=== PATIENT | female | born 1975 | race Caucasian/White ===

== ENCOUNTER 2016-07-18 20:38 | Emergency (ER) | payer OTHER ==
[2016-03-04 16:22] VITALS: BP 113/57
[~2016-07-18 20:38] MED LIST: METR500T PO; PREN1TAB58 PO
== END 2016-07-18 21:45 | disposition left against medical advice (07) ==
LOC: ER 20:38
DX: M79.662 Pain in left lower leg (principal); M79.89 Other specified soft tissue disorders; R25.2 Cramp and spasm; Z53.21 Procedure and treatment not carried out due to patient leaving prior to being seen by health care provider

== ENCOUNTER 2018-07-04 22:53 | Observation (INO) | payer SELFPAY ==
[2016-08-13 15:30] VITALS: BP 129/61
[~2018-07-04 22:53] MED LIST changes: +DOCU-109 PO; +IBUP-1060 PO; +OXYC1TAB15 PO
[2018-07-04 23:25] LABS: BILIRUBIN,URINE NEGATIVE (NEG); CLARITY,URINE CLEAR; COLOR,URINE YELLOW; NITRITE,URINE NEGATIVE (NEG); PROTEIN,URINE 30 mg/dL (NEG-TRACE); UROBILINOGEN,URINE 0.2 mg/dL (0.2 mg/dL)
[2018-07-04] MEDS ORDERED: IV RINGERS,LACTATED 1000ML 1,000 ML IV SCH (23:30)
[2018-07-04 23:31] LABS: BARBITURATES NEG (NEG); BENZODIAZEPINES NEG (NEG); CANNABINOIDS NEG (NEG); COCAINE NEG (NEG); METHADONE NEG (NEG); OPIATES NEG (NEG); PHENCYCLIDINE NEG (NEG)
[2018-07-04 23:34] LABS: BACTERIA,URINE FEW /HPF (0-FEW); RBC,URINE OCC /HPF (0-2)
[2018-07-04 23:35] LABS: SQUAMOUS EPITHELIAL CELL,UR MOD /LPF; YEAST,URINE PRESENT /HPF
[2018-07-04 23:54] LABS: AMPHETAMINE/METHAMPHETAMINE POS (NEG)
[2018-07-05] MEDS ORDERED: AMOX875T PO (00:16)
[2018-07-05] MEDS ORDERED: HYDR-3164 PO (00:16)
== END 2018-07-04 23:45 | disposition home or self-care (01) ==
LOC: 3 SO LND 22:53
PROVIDERS: ADMIT Obstetrics & Gynecology; ATTEND Obstetrics & Gynecology
DX: O36.8130 Decreased fetal movements, third trimester, not applicable or unspecified (principal); O26.893 Other specified pregnancy related conditions, third trimester; K08.89 Other specified disorders of teeth and supporting structures; Z3A.31 31 weeks gestation of pregnancy
CPT/HCPCS: 80307; 81001; G0379

== ENCOUNTER 2018-07-04 23:55 | Emergency (ER) | payer SELFPAY ==
[2016-08-13 15:30] VITALS: BP 129/61
[~2018-07-04] VITALS: Ht 157.5 cm; Wt 69.4 kg
[2018-07-05] MEDS ORDERED: AMOX875T PO (00:16)
[2018-07-05] MEDS ORDERED: HYDR-3164 PO (00:16)
--- NOTE | 2018-07-05 00:16 | PHYS DOC ---
Past Medical History Past Medical History: No Pertinent History Past Surgical History: Other Additional Past Surgical Histo: JAW RECONSTRUCTION Alcohol Use: None Drug Use: None Adult General Chief Complaint Chief Complaint: DENTAL PROBLEM HPI HPI Patient is a 43 year old female in no significant medical history currently 27 weeks 9 para 8 presenting today with moderate left upper gum dental pain that began today. Patient denies any fever or trismus. She states she has plans to see her dentist tomorrow if she can get an appointment. She has known history of dental caries. She was evaluated on the OB floor. Review of Systems Review of Systems Constitutional: Denies fever or chills [] HENT: Reports dental pain GI: Denies abdominal pain, nausea, vomiting, bloody stools or diarrhea [] Musculoskeletal: Denies back pain or joint pain [] Integument: Denies rash or skin lesions [] Neurologic: Denies headache, focal weakness or sensory changes [] All other systems were reviewed and found to be within normal limits, except as documented in this note. Allergies Allergies Allergies Coded Allergies Type Severity Reaction Last Updated Verified No Known Drug Allergies 03/04/16 No Physical Exam Physical Exam Constitutional: Well developed, well nourished, no acute distress, non-toxic appearance. [] HENT: Normocephalic, atraumatic, bilateral external ears normal, oropharynx moist, no oral exudates, nose normal. [] Left upper molars with multiple teeth with infected dental caries. Dental caries scattered throughout the remainder of her teeth. No gum erythema. No abscess. Abdomen: Gravid abdomen. Bowel sounds normal, soft, no tenderness, no masses, no pulsatile masses. [] Skin: Warm, dry, no erythema, no rash. [] Back: No tenderness, no CVA tenderness. [] Extremities: No tenderness, no cyanosis, no clubbing, ROM intact, no edema. [] Neurologic: Alert and oriented X 3, normal motor function, normal sensory function, no focal deficits noted. [] Psychologic: Affect normal, judgement normal, mood normal. [] EKG EKG [] Radiology/Procedures Radiology/Procedures [] Course & Med Decision Making Course & Med Decision Making Pertinent Labs and Imaging studies reviewed. (See chart for details) This is a 43-year-old. Patient 9 para 8 currently 27 weeks presenting to the ED today with dental pain. Patient has infected dental caries. Was already evaluated on the OB floor. Will be discharged with amoxicillin and hydrocodone. She has an established care with a dentist. Requested her to follow-up in the next 7 days. Reuben Disclaimer Reuben Disclaimer This electronic medical record was generated, in whole or in part, using a voice recognition dictation system. Departure Departure Impression: Primary Impression: Dentalgia Additional Impression: Infected dental caries Disposition: HOME, SELF-CARE Condition: STABLE Referrals: KIRA HUMPHREYS Jr, MD (PCP) Follow-up with your dentist as soon as you can Patient Instructions: Dental Caries Additional Instructions: You were evaluated in the emergency room for infected dental caries. Complete your antibiotics. Take the prescribed pain medicine as needed for pain. Follow- up with the dentist as soon as you can. Scripts Amoxicillin (AMOXICILLIN) 875 Mg Tablet 1 TAB PO BID, #20 TAB Prov: SARINA DOWNING APRN 07/05/18 Hydrocodone/Apap 5-325 (NORCO 5-325 TABLET) 1 Each Tablet 1 TAB PO Q6HRS, #12 TAB Prov: SARINA DOWNING APPLICATION SUPPORT ANALYST 07/05/18 Problem Qualifiers SARINA DOWNING APRN Jul 05, 2018 00:16
[2018-07-05] MEDS ORDERED: AMOXICILLIN 250 MG CAPSULE. PO ONE (00:30)
[2018-07-05] MEDS ORDERED: HYDROcodone/APAP 5/325MG 1 TAB TABLET PO ONE (00:30)
== END 2018-07-05 00:31 | disposition home or self-care (01) ==
LOC: ER 23:55
DX: O99.613 Diseases of the digestive system complicating pregnancy, third trimester (principal); K02.9 Dental caries, unspecified; Z3A.27 27 weeks gestation of pregnancy
CPT/HCPCS: 99283

== ENCOUNTER 2018-08-07 22:14 | Observation (INO) | payer MEDICAID ==
[2018-07-04 23:59] VITALS: BP 132/61
[~2018-08-07 22:14] MED LIST changes: +AMOX875T PO; +HYDR-3164 PO
[2018-08-07] MEDS ORDERED: IV RINGERS,LACTATED 1000ML 1,000 ML IV PRN (22:30)
[2018-08-07 22:40] LABS: BILIRUBIN,URINE NEGATIVE (NEG); CLARITY,URINE CLEAR; COLOR,URINE YELLOW; NITRITE,URINE NEGATIVE (NEG); PROTEIN,URINE NEGATIVE (NEG-TRACE); UROBILINOGEN,URINE 0.2 mg/dL (0.2 mg/dL)
[2018-08-07 22:46] LABS: BACTERIA,URINE FEW /HPF (0-FEW); RBC,URINE 0 /HPF (0-2); SQUAMOUS EPITHELIAL CELL,UR MANY /LPF; WBC,URINE TNTC /HPF (0-4)
[2018-08-07 22:47] LABS: BARBITURATES NEG (NEG); BENZODIAZEPINES POS (NEG); CANNABINOIDS NEG (NEG); COCAINE NEG (NEG); METHADONE NEG (NEG); OPIATES NEG (NEG); PHENCYCLIDINE NEG (NEG)
[2018-08-07 22:48] LABS: AMPHETAMINE/METHAMPHETAMINE POS (NEG)
[2018-08-07] MEDS ORDERED: hydrOXYzine IM 50 MG/ML VIAL IM ONE (23:15)
[2018-08-07 23:35] LABS: BASO # 0.1 x10^3/uL (0.0-0.2); BASO % 1 % (0-3); EOS % 0 % (0-3); HEMATOCRIT 34.3 % (36.0-47.0); HEMOGLOBIN 11.3 g/dL (12.0-15.5); LYMPH # 2.1 x10^3/uL (1.0-4.8); LYMPH % 17 % (24-48); MEAN CORPUSCULAR HEMOGLOBIN 29 pg (25-35); MEAN CORPUSCULAR HGB CONC 33 g/dL (31-37); MEAN CORPUSCULAR VOLUME 88 fL (79-100); MONO # 0.5 x10^3/uL (0.0-1.1); MONO % 4 % (0-9); NEUT # 9.6 x10^3uL (1.8-7.7); NEUT % 78 % (31-73); PLATELET COUNT 377 x10^3/uL (140-400); RED BLOOD COUNT 3.88 x10^6/uL (3.50-5.40); RED CELL DISTRIBUTION WIDTH 14.5 % (11.5-14.5); WHITE BLOOD COUNT 12.4 x10^3/uL (4.0-11.0)
== END 2018-08-08 00:05 | disposition home or self-care (01) ==
LOC: 3 SO LND 22:14
PROVIDERS: ADMIT Obstetrics & Gynecology; ATTEND Obstetrics & Gynecology
DX: O26.893 Other specified pregnancy related conditions, third trimester (principal); M54.9 Dorsalgia, unspecified; Z3A.36 36 weeks gestation of pregnancy
CPT/HCPCS: 80307; 81001; 85025; 86592; 87086; 87340; 96374; G0378; G0379; J3410; 36415; 86762

== ENCOUNTER 2019-09-03 10:08 | Emergency (ER) | payer MEDICAID ==
[2018-07-04 23:59] VITALS: BP 132/61
== END 2019-09-03 10:47 | disposition left against medical advice (07) ==
LOC: ER 10:08
DX: R55 Syncope and collapse (principal); Z53.21 Procedure and treatment not carried out due to patient leaving prior to being seen by health care provider